=== PATIENT | female | born 1985 | race African-American/Black ===

== ENCOUNTER 2022-03-15 15:57 | Inpatient (IN) | payer BC, SELFPAY ==
[2022-03-15] VITALS (28 sets, daily range): BP systolic 83–122; BP diastolic 55–77; PULSE 74–96; RESP 16–18; TEMP 36.8–37.1; O2SAT 100; BMI 36.5
[2022-03-15] MEDS: DINOPROSTONE 10 MG VAG INSERT VAGINAL (17:43)
--- NOTE | 2022-03-15 18:18 | LDADM ---
This patient, Daniela Nguyễn, was admitted to Labor/Delivery/Recovery 107 on 03/15/22 at 15:57. Plans for labor, pain management and were discussed with patient. Patient/family oriented to hospital policies and general routines including ID bracelet, bed and alarms, visiting hours, pain management, procedures, bathroom and other care routines, personal items, smoking policy, room service/diet and guest tray routines, security routines, and visiting hours. Patient/Family are encouraged to report perceived risks to care and to ask questions if they do not understand what they are told or what they should do. See OBIX for further documentation.
[2022-03-15 18:57] LABS: Basophils Percent Auto 0.3 % (0.2-1.2); Eosinophils Percent Auto 0.5 % (0-4.4); Hematocrit 29.5 % (37.0-47.0); Hemoglobin 9.7 g/dL (12.0-15.0); Immature Granulocyte Absolute 0.07 K/mm3 (0.00-0.031); Immature Granulocyte Percent A 1.2 % (0-0.5); Lymphocytes Absolute Auto 1.37 K/mm3 (0.9-3.2); Lymphocytes Percent Auto 23.4 % (18.3-44.2); Mean Corpuscular HGB Conc 32.9 g/dl (32-36); Mean Corpuscular Hemoglobin 30.1 pg (26-34); Mean Corpuscular Volume 91.6 fl (80-100); Mean Platelet Volume 11.7 fl (7.4-10.4); Monocytes Absolute Auto 0.5 K/mm3 (0.1-0.6); Monocytes Percent Auto 9.1 % (2.6-8.5); Neutrophils Absolute Auto 3.8 K/mm3 (1.3-6.7); Neutrophils Percent Auto 65.5 % (45.5-73.1); Platelet Count Result 223 k/mm3 (150-375); Red Blood Count 3.22 M/mm3 (4.2-5.4); Red Cell Distribution Width 13.6 % (11.5-14.5); White Blood Count 5.9 K/mm3 (4.5-10.0)
[2022-03-16] VITALS (197 sets, daily range): BP systolic 72–198; BP diastolic 40–175; PULSE 62–223; RESP 14–16; TEMP 36.6–37.1; O2SAT 85–100
[2022-03-16 05:48] LABS: Rapid Plasma Reagin Non-Reactive (NonReactive)
--- NOTE | 2022-03-16 06:10 | P.PNAN_ITS ---
Anes - Eval Pre Procedure Procedure: labor epidural Date/Time: 03/16/22 06:10 Surgeon: hermann Preop Diagnosis: pain during labor Pre Op Diagnosis: IOL Patient Data Age: 36 Gender: F Height: 1.57 m Weight: 90.5 kg Last Vital Signs Temp 36.7 C 03/16/22 03:30 Pulse 85 03/16/22 00:01 Resp 16 03/16/22 03:30 BP 113/74 03/16/22 00:01 Pulse Ox 100 03/15/22 17:16 Allergies Allergy/AdvReac Type Severity Reaction Status Date / Time No Known Allergies Allergy Verified 02/19/22 14:46 Home Medications Medication Instructions Recorded Confirmed Type No Home Medications 02/19/22 02/19/22 History Laboratory Tests 03/15/22 03/15/22 03/15/22 17:37 17:37 17:37 WBC 5.9 K/mm3 K/mm3 (4.5-10.0) RBC 3.22 M/mm3 L M/mm3 (4.2-5.4) Hgb 9.7 g/dL L g/dL (12.0-15.0) Hct 29.5 % L % (37.0-47.0) MCV 91.6 fl fl (80-100) MCH 30.1 pg pg (26-34) MCHC 32.9 g/dl g/dl (32-36) RDW 13.6 % % (11.5-14.5) Plt Count 223 k/mm3 k/mm3 (150-375) MPV 11.7 fl H fl (7.4-10.4) Immature Gran % (Auto) 1.2 % H % (0-0.5) Neut % (Auto) 65.5 % % (45.5-73.1) Lymph % (Auto) 23.4 % % (18.3-44.2) Baldwin % (Auto) 9.1 % H % (2.6-8.5) Eos % (Auto) 0.5 % % (0-4.4) Baso % (Auto) 0.3 % % (0.2-1.2) Lymph # (Auto) 1.37 K/mm3 K/mm3 (0.9-3.2) Baldwin # (Auto) 0.5 K/mm3 K/mm3 (0.1-0.6) Eos # (Auto) 0.0 K/mm3 K/mm3 (0-0.3) Baso # (Auto) 0.0 K/mm3 K/mm3 (0.0-0.1) Abs Immat Gran (auto) 0.07 K/mm3 H K/mm3 (0.00-0.031) Absolute Neuts (auto) 3.8 K/mm3 K/mm3 (1.3-6.7) Absolute Nucleated RBC 0.0 K/mm3 K/mm3 (0.0-0.012) Nucleated RBC % 0.0 % % (0.0-0.2) RPR Non-reactive (NonReactive) Blood Type O Positive Antibody Screen Negative Patient hx anesthesia problems: none Family hx anesthesia problems: none Results Review: All pre-operative results and documents have been reviewed as part of the pre-operative evaluation. [facility] Family History Family History (Updated 02/19/22 @ 14:27 by Garcia Vazquez RN) Mother Diabetes mellitus Hypertension Father Diabetes mellitus Hypertension Social History Social History Smoking status: Never smoker Substance use: former Spiritual care concerns: No Exam Day of Procedure 03/16/22 06:10
[2022-03-16] MEDS: OXYTOCIN 30 UNITS/NS 500 ML 30 UNITS/500 ML BAG IV CONT (06:25)
[2022-03-16] MEDS: LACTATED RINGERS 1,000 ML 125 ML IV CONT (06:26)
--- NOTE | 2022-03-16 07:48 | PM.IMHP ---
H&P: HPI History of Present Illness Date/Time: 03/16/22 07:48 Chief Complaint: Intrauterine at term Narrative: 36 yo at 39w2d who presents for elective IOL. is complicated by h/o delivery at 36 w secondary to PPROM, advanced maternal age, GERD, THC use, and anemia on iron. Review of Systems Cardiovascular: Cardiovascular: Denies chest pain, Denies leg edema, Denies palpitations, Denies dyspnea and Denies dyspnea on exertion Respiratory: Respiratory: Denies cough, Denies dyspnea and Denies dyspnea on exertion Gastrointestinal: Gastrointestinal: Denies abdominal pain, Denies constipation, Denies diarrhea, Denies nausea and Denies vomiting Genitourinary: Genitourinary: Denies hematuria, Denies urinary frequency, Denies dysuria, Denies pelvic pain, Denies urinary incontinence and Denies vaginal discharge Neurologic: Reports system reviewed and no additional complaints, except as documented Psychiatric: Psychiatric: Reports no additional psychiatric complaints Endocrine: Endocrine: Denies palpitations [facility] Family History Family History (Updated 02/19/22 @ 14:27 by Garcia Vazquez RN) Mother Diabetes mellitus Hypertension Father Diabetes mellitus Hypertension Social History Social History Smoking status: Never smoker Substance use: former Spiritual care concerns: No Meds Home Medications and Allergies Home Medications Medication Instructions Recorded Confirmed Type No Home Medications 02/19/22 02/19/22 History Allergies Allergy/AdvReac Type Severity Reaction Status Date / Time No Known Allergies Allergy Verified 02/19/22 14:46 Vital Signs Vital Signs - 24 hr 03/15/22 16:26 03/15/22 16:31 03/15/22 16:36 Temperature Pulse Rate Respiratory Rate Blood Pressure Pulse Oximetry 100 100 100 03/15/22 16:41 03/15/22 16:46 03/15/22 16:51 Temperature Pulse Rate Respiratory Rate Blood Pressure Pulse Oximetry 100 100 100 03/15/22 16:56 03/15/22 17:01 03/15/22 17:06 Temperature Pulse Rate Respiratory Rate Blood Pressure Pulse Oximetry 100 100 100 03/15/22 17:11 03/15/22 17:16 03/15/22 17:30 Temperature 37.1 C Pulse Rate Respiratory Rate Blood Pressure Pulse Oximetry 100 100 03/15/22 17:37 03/15/22 17:46 03/15/22 18:01 Temperature Pulse Rate 79 89 79 Respiratory Rate Blood Pressure 120/64 111/62 110/63 Pulse Oximetry 03/15/22 18:16 03/15/22 18:17 03/15/22 18:30 Temperature 36.8 C Pulse Rate 87 87 Respiratory Rate 18 Blood Pressure 122/75 122/75 Pulse Oximetry 03/15/22 18:31 03/15/22 18:46 03/15/22 19:01 Temperature Pulse Rate 79 96 85 Respiratory Rate Blood Pressure 108/76 83/63 L 98/74 L Pulse Oximetry 03/15/22 19:16 03/15/22 19:31 03/15/22 19:46 Temperature Pulse Rate 79 81 85 Respiratory Rate 16 Blood Pressure 108/69 109/73 107/71 Pulse Oximetry 03/15/22 20:01 03/15/22 20:16 03/15/22 20:31 Temperature Pulse Rate 81 74 85 Respiratory Rate Blood Pressure 99/55 L 118/69 122/77 Pulse Oximetry 03/15/22 20:41 03/16/22 00:01 03/16/22 01:16 Temperature 36.9 C 36.8 C Pulse Rate 85 Respiratory Rate 16 16 16 Blood Pressure 113/74 Pulse Oximetry 03/16/22 02:24 03/16/22 03:30 03/16/22 06:31 Temperature 36.7 C 36.8 C Pulse Rate 91 Respiratory Rate 14 16 Blood Pressure 101/69 Pulse Oximetry 03/16/22 06:32 03/16/22 06:46 03/16/22 07:01 Temperature Pulse Rate 84 81 76 Respiratory Rate Blood Pressure 112/71 108/64 114/68 Pulse Oximetry 03/16/22 07:16 03/16/22 07:31 03/16/22 07:46 Temperature Pulse Rate 75 80 73 Respiratory Rate Blood Pressure 106/69 122/74 108/73 Pulse Oximetry Exam Const: General: no acute distress Eyes: EOM: EOMs intact bilaterally Neck: Neck: supple Thyroid: thyroid normal Chest: Breast/axilla inspection: normal
--- NOTE | 2022-03-16 07:54 | PM.OBPNLAB ---
Pain Control Date/time seen: 03/16/22 07:54 Pain control: tolerating well Pelvic Exam Dilation (cm): 1 Effacement (%): 50 station: -3 Amniotic membrane status: Intact Contractions Monitor mode: External Status status: Category l Assessment and Plan Plan: continuous present management Comments: cervical brown bulb placed on gentle traction
[2022-03-16] MEDS: fentaNYL CITRATE INJ (*CRX) 100 MCG/2 ML VIAL 50 MCG IV PUSH (08:15)
[2022-03-16 09:24] LABS: Amphetamine Screen Urine Negative (Negative); Barbiturate Screen Urine Negative (Negative); Benzodiazepines Screen Urine Negative (Negative); Cannabinoid Screen Urine Negative (Negative); Cocaine Screen Urine Negative (Negative); Methadone Screen Urine Negative (Negative); Opiate Screen Urine Negative (Negative); Phencyclidine Screen Urine Negative (Negative)
[2022-03-16] MEDS: PHENYLEPHRINE 1,000 MCG/10 ML SYRINGE 100 MCG IV PUSH ×3 (09:56→10:08)
[2022-03-16] MEDS: LACTATED RINGERS 1,000 ML 999 ML IV CONT ×3 (10:00→19:27)
[2022-03-16] MEDS: ONDANSETRON INJ 4 MG/2 ML VIAL IV PUSH (10:05)
[2022-03-16] MEDS: ePHEDrine sulfate INJ 50 MG/ML AMPUL IV PUSH ×2 (10:34→10:41)
[2022-03-16] MEDS: CALCIUM CARBONATE (TUMS) 500 MG (200 MG ELEMENTAL) PO (14:09)
[2022-03-16] MEDS: SODIUM CHLORIDE 0.9% IV 300 ML 600 ML I-UTERINE (16:11)
--- NOTE | 2022-03-16 21:49 | PM.OBPRVD ---
OB - Delivery Note Procedure Procedure: Patient pushed for a spontaneous vaginal delivery. The fetus was delivered atraumatically and placed on the maternal abdomen. The cord was clamped and cut after 1 minute of life. The cord was double clamped and cut and a segment of cord was collected for cord gases. Cord blood was collected for blood type and Coomb's testing. The placenta delivered spontaneously and was noted to be intact. The perineum was inspected and there were bilateral vaginal lacerations. The lacerations was repaired with 3-0 vicryl in the usual fashion. The uterus was firm and good hemostasis was noted. The patient and fetus were stable in the delivery room. Induction method: Per Cervidil Protocol Delivery augmentation: Pitocin Delivery monitor: External FHT Route of delivery: Episiotomy description: None Laceration Description: Vaginal Delivery repair: vicryl Specimen: No Quantitative Blood Loss (ml): 400 Anesthesia type: Epidural Disposition: Floor () Complications: No immediate complications Baby Date of : 03/16/[birth year] Time of : 21:30 Weeks of gestation at delivery: 39 Infant gender: Female Weight (pounds): 8 Weight (ounces): 7 presentation: vertex position: Right Occiput Anterior Placenta delivery description: Spontaneous Cord Vessel Description: 3 Vessels score one minute: 8 score five minutes: 9
[2022-03-16] MEDS: OXYTOCIN 30 UNITS/NS 500 ML 30 UNITS/500 ML BAG 125 UNITS IV CONT (22:15)
[2022-03-16] MEDS: WITCH HAZEL 40 PADS 1 PAD TOPICAL (22:52)
[2022-03-16] MEDS: IBUPROFEN 600 MG TABLET PO (22:52)
[2022-03-16] MEDS: BENZOCAINE 20% AER SPR (*SP) 56 GM CAN 1 SPRAY TOPICAL (22:52)
[2022-03-16] MEDS: POLYSACCHARIDE IRON COMPLEX 150 MG CAPSULE PO (23:01)
--- NOTE | 2022-03-16 23:55 | OBPPTRN ---
Patient transferred to post room #282 via W/C. Support person present. Oriented to unit, room, information board, rooming in, admission packet and security measures. Patient verbalizes understanding.
[2022-03-17] MEDS: ACETAMINOPHEN 325 MG TABLET 650 MG PO (00:12)
[2022-03-17 00:16] VITALS: BP 114/63; PULSE 72; RESP 16; TEMP 36.8
[2022-03-17] MEDS: IBUPROFEN 600 MG TABLET PO ×3 (04:13→17:49)
[2022-03-17 04:15] VITALS: BP 97/53; PULSE 75; RESP 18; TEMP 36.6
[2022-03-17 05:27] LABS: Hematocrit 25.7 % (37.0-47.0)
--- NOTE | 2022-03-17 06:36 | PM.OBPNVD ---
OB - PN: Subj Subjective Date/time seen: 03/17/22 06:36 Patient comments: no complaints and pain well controlled baby status: doing well OB - PN: Obj Data Labs CBC & Chem 7: 03/17/22 04:21 Labs: Laboratory Results - last 24 hr 03/16/22 03/17/22 08:58 04:21 Hgb 8.0 L Hct 25.7 L Urine Opiates Screen Negative Urine Methadone Screen Negative Ur Barbiturates Screen Negative Ur Phencyclidine Scrn Negative Ur Amphetamine Screen Negative U Benzodiazepines Scrn Negative Urine Cocaine Screen Negative U Cannabinoids Screen Negative OB - PN A/P Plan day: 1 Plan: routine care Comments: Start iron replacement Time Spent With Patient Time: Total time spent is greater than 50% in coordination of care (as documented) at patient's floor/unit and/or counseling patient: Time with patient: less than 15 minutes Review of Systems Review of Systems: All systems reviewed & are unremarkable except as noted in HPI and below Exam Const: General: no acute distress Eyes: General: appearance normal, both eyes and all related structures Neck: Neck: supple and no JVD Thyroid: thyroid normal Resp: Effort & Inspection: normal respiratory effort Auscultation: clear to auscultation bilaterally Cardio: Rate: regular rate Rhythm: regular rhythm GI: Inspection: non-distended GI Palp: Yes Soft to palpation, No Tenderness to palpation present (GI) and No Guarding due to palpation present (GI) Auscultation: normal bowel sounds : General: Yes bladder normal to palpation External Female Exam: normal external appearance Speculum Exam - Vagina: normal vaginal discharge and No vaginal bleeding Speculum Exam - Cervix: nontender Bimanual exam- vagina & uterus: bladder normal to palpation and No Cervical tenderness present OB/external & speculum: No vaginal bleeding Skin: General skin exam: no rashes or lesions noted Extrem: General: normal to inspection and no edema Psych: Mental Status: mental status grossly normal Affect: normal affect
[2022-03-17 08:40] VITALS: BP 100/60; PULSE 81; RESP 14; TEMP 37.3; O2SAT 99
[2022-03-17 12:21] VITALS: BP 101/68; PULSE 88; RESP 14; TEMP 37.4; O2SAT 98
[2022-03-17 15:30] VITALS: BP 101/66; PULSE 72; RESP 12; TEMP 37.3; O2SAT 98
[2022-03-17] MEDS: POLYSACCHARIDE IRON COMPLEX 150 MG CAPSULE PO (17:49)
[2022-03-17] MEDS: DOCUSATE SODIUM 100 MG CAPSULE PO (17:49)
[2022-03-17 19:05] VITALS: BP 113/72; PULSE 87; RESP 18; TEMP 36.7
[2022-03-18] MEDS: IBUPROFEN 600 MG TABLET PO (05:01)
[2022-03-18] MEDS: DOCUSATE SODIUM 100 MG CAPSULE PO (07:59)
[2022-03-18] MEDS: POLYSACCHARIDE IRON COMPLEX 150 MG CAPSULE PO (07:59)
[2022-03-18 08:08] VITALS: BP 100/62; PULSE 71; RESP 12; TEMP 36.7; O2SAT 99
--- NOTE | 2022-03-18 08:29 | PM.OBPNVD ---
OB - PN: Subj Subjective Date/time seen: 03/18/22 08:29 Patient comments: no complaints and pain well controlled baby status: doing well OB - PN: Obj Data Labs CBC & Chem 7: 03/17/22 04:21 OB - PN A/P Plan day: 2 Plan: routine care, discharge home and follow up 6 weeks Time Spent With Patient Time: Total time spent is greater than 50% in coordination of care (as documented) at patient's floor/unit and/or counseling patient: Time with patient: less than 15 minutes Review of Systems Review of Systems: All systems reviewed & are unremarkable except as noted in HPI and below Exam Const: General: no acute distress Eyes: General: appearance normal, both eyes and all related structures Neck: Neck: supple and no JVD Thyroid: thyroid normal Resp: Effort & Inspection: normal respiratory effort Auscultation: clear to auscultation bilaterally Cardio: Rate: regular rate Rhythm: regular rhythm GI: Inspection: non-distended GI Palp: Yes Soft to palpation, No Tenderness to palpation present (GI) and No Guarding due to palpation present (GI) Auscultation: normal bowel sounds : General: Yes bladder normal to palpation External Female Exam: normal external appearance Speculum Exam - Vagina: normal vaginal discharge and No vaginal bleeding Speculum Exam - Cervix: nontender Bimanual exam- vagina & uterus: bladder normal to palpation and No Cervical tenderness present OB/external & speculum: No vaginal bleeding Skin: General skin exam: no rashes or lesions noted Extrem: General: normal to inspection and no edema Psych: Mental Status: mental status grossly normal Affect: normal affect
--- NOTE | 2022-03-18 08:30 | P.DS_ITS ---
DS: Admitting Diagnosis Discharge Date Admitting Diagnosis Term DS: Summary Hospital Course Hospital Course: Patient underwent successful induction labor spontaneous vagi nal delivery of a female . Her hospital course was unremarkable. She was up, ambulating, voiding without difficulty, eating regular diet generally without complaints. Time Spent with Patient Time attestation: Total time spent providing and/or coordinating discharge services: Exam Const: General: no acute distress Eyes: General: appearance normal, both eyes and all related structures Neck: Neck: supple and no JVD Thyroid: thyroid normal Resp: Effort & Inspection: normal respiratory effort Auscultation: clear to auscultation bilaterally Cardio: Rate: regular rate Rhythm: regular rhythm GI: Inspection: non-distended GI Palp: Yes Soft to palpation, No Tenderness to palpation present (GI) and No Guarding due to palpation present (GI) Auscultation: normal bowel sounds : General: Yes bladder normal to palpation External Female Exam: normal external appearance Speculum Exam - Vagina: normal vaginal discharge and No vaginal bleeding Speculum Exam - Cervix: nontender Bimanual exam- vagina & uterus: bladder normal to palpation and No Cervical tenderness present OB/external & speculum: No vaginal bleeding Skin: General skin exam: no rashes or lesions noted Extrem: General: normal to inspection and no edema Psych: Mental Status: mental status grossly normal Affect: normal affect Discharge Plan Discharge Attending physician on discharge: Ahsan Reed Discharging Clinician: Ahsan Reed Patient Disposition: Home, Self-Care Activity: no straining and pelvic rest Diet: heart healthy Wound Care Instructions: follow printed instructions Patient Instructions: Antibiotic Form Stand Alone Forms: General Discharge Information Follow-up/Referrals: Ahsan Reed MD [Physician] - Discharge Medications: No Action No Home Medications RF: 0 Date of admission: 03/15/22 15:57 Primary Care Provider: PHYSICIAN,DIRECTOR INFORMATION SECURITY Admitting Provider: Ahsan Reed Attending physician on admission: Ahsan Reed Condition: Stable
--- NOTE | 2022-03-18 09:28 | PC.NURSE ---
Patient viewed the discharge video Mother & Baby Care, The First Two Weeks . Patient was given the opportunity and encouraged to ask questions. Patient verbalized understanding of information shared and has been given the mother/baby guide for home reference.
[2022-03-19 11:50] VITALS: BP 114/66; PULSE 68; RESP 18; TEMP 36.9; O2SAT 99
== END 2022-03-18 09:37 | disposition home or self-care (01) | DRG 806 ==
LOC: ANHOB2 03-18 08:45 → ANHLDR 03-20 09:37 → ANHOB2 03-20 09:37
PROVIDERS: Admitting Provider Student in an Organized Health Care Education/Training Program; Visit Provider Obstetrics & Gynecology
DX: O99.02 Anemia complicating childbirth (principal); O71.4 Obstetric high vaginal laceration alone; Z37.0 Single live birth; Z3A.39 39 weeks gestation of pregnancy; D50.9 Iron deficiency anemia, unspecified; O36.8330 Maternal care for abnormalities of the fetal heart rate or rhythm, third trimester, not applicable or unspecified; O99.62 Diseases of the digestive system complicating childbirth; K21.9 Gastro-esophageal reflux disease without esophagitis; O99.892 Other specified diseases and conditions complicating childbirth; Z87.59 Personal history of other complications of pregnancy, childbirth and the puerperium
CPT/HCPCS: 36415; 80307; 85014; 85018; 85025; 86592; 86850; 86900; 86901; A9270; J2370; J2405; J2590; J2795; J3010; J7030; J7120